=== PATIENT | female | born 1980 | race African-American/Black ===

== ENCOUNTER 2018-12-03 21:06 | Emergency (ER) | payer OTHER ==
[~2018-12-03] VITALS: Ht 157.5 cm; Wt 131.1 kg
[~2018-12-03 21:06] MED LIST: BACTRIM DS TAB1 EACH PO; FLAGYL500 MG PO; NAPROSYN500 MG PO; NOHOMEMEDICATIONS
[2018-12-03] MEDS ORDERED: FERROUS GLUCON324 M3 PO (21:42)
[2018-12-03] MEDS ORDERED: PHENTERMINE H37.5 MG PO (21:43)
[2018-12-03 22:29] VITALS: BP 140/88
== END 2018-12-03 22:30 | disposition home or self-care (01) ==
LOC: ER 21:06
DX: N90.89 Other specified noninflammatory disorders of vulva and perineum (principal); F17.290 Nicotine dependence, other tobacco product, uncomplicated; Z86.2 Personal history of diseases of the blood and blood-forming organs and certain disorders involving the immune mechanism; Z88.0 Allergy status to penicillin